=== PATIENT | female | born 1990 | race Caucasian/White ===

== ENCOUNTER 2016-06-23 12:40 | Emergency (ER) | payer OTHER ==
[~2016-06-23 12:40] MED LIST: IBUPROFEN; NO MEDICATIONS; WESTCORT15 GM TOP; ZOFRAN ODT4 MG PO
[2016-07-06] MEDS ORDERED: NO MEDICATIONS (23:04)
== END 2016-06-23 13:38 | disposition home or self-care (01) ==
LOC: SED 12:40
DX: T50.901A Poisoning by unspecified drugs, medicaments and biological substances, accidental (unintentional), initial encounter (principal); F17.200 Nicotine dependence, unspecified, uncomplicated; Z88.8 Allergy status to other drugs, medicaments and biological substances
CPT/HCPCS: 96374; 99283

== ENCOUNTER 2016-07-06 23:09 | Emergency (ER) | payer OTHER ==
--- NOTE | ~2016-07-06 | CR63 ---
[facility] A Service of [facility] & [facility] RADIOLOGY TEXT RESULTS PATIENT: ARGELIA ZARCO LOCATION: SED : 88 UNIT #: [id number] AGE: [address]: Tong Weller MD SEX: F ORDER DR: [id number] [place] [id number] E MR#: [id number] Acc #: [id number] NAME: ARGELIA ZARCO : 1990 SEX: F STUDY DATE/TIME: 07/06/2016 23:36 UNIT: SED ROOM: STUDY DESCRIPTION: CR Chest 2 View Attending Physician: Tong Weller M.D. Ordering Physician: Tong Weller M.D. Primary Care Physician: Primary Care Physician No MEDICAL IMAGING REPORT This report is preliminary unless electronic signature is present. EXAM PA and lateral chest, 07/06/2016 at 23:36 HISTORY 25-year-old female with cough, congestion and body aches for 4 days. COMPARISON AP portable chest 07/07/2013. CT abdomen and pelvis lung windows 04/30/2016. FINDINGS Airspace disease is present within the left lower lobe and right middle lobe. No pleural effusion or pneumothorax is seen. IMPRESSION Airspace disease within the right middle lobe and within the left lower lobe. Findings are consistent with the appearance of pneumonia in the appropriate clinical context. Short-term radiographic followup to document resolution is recommended. Dictated by... Gertrudis Gibbs M.D. THIS IS AN ELECTRONICALLY VERIFIED REPORT Gertrudis Gibbs M.D. at 07/08/2016 12:12 AM Tanvi TD: 07/07/2016 11:47 JOB #: [id number] MEDICAL IMAGING REPORT
[2016-07-06 23:39] LABS: INFLUENZA A NEG (NEG); INFLUENZA B NEG (NEG)
== END 2016-07-07 00:21 | disposition home or self-care (01) ==
LOC: SED 23:09
PROVIDERS: Emergency Medicine
DX: J18.9 Pneumonia, unspecified organism (principal)
CPT/HCPCS: 71020; 87804; 99283

== ENCOUNTER 2016-09-19 22:06 | Emergency (ER) | payer OTHER | END 2016-09-19 23:09 | disposition home or self-care (01) | LOC: SED 22:06 | DX: F11.120 Opioid abuse with intoxication, uncomplicated (principal) | CPT/HCPCS: 99282 ==

== ENCOUNTER 2017-01-09 04:49 | Emergency (ER) | payer OTHER ==
[~2017-01-09] VITALS: Ht 165.1 cm; Wt 59.0 kg
== END 2017-01-09 05:24 | disposition home or self-care (01) ==
LOC: SED 04:49
DX: J20.9 Acute bronchitis, unspecified (principal); F17.210 Nicotine dependence, cigarettes, uncomplicated; Z88.8 Allergy status to other drugs, medicaments and biological substances
CPT/HCPCS: 99283